=== PATIENT | female | born 1960 | race Caucasian/White ===

== ENCOUNTER → 2019-07-16 | Outpatient (CLI) | payer BC | LOC: MC.RAD 07:02 | DX: Z12.31 Encounter for screening mammogram for malignant neoplasm of breast (principal) ==

== ENCOUNTER → 2020-07-24 | Outpatient (CLI) | payer BC | LOC: MC.RAD 07-16 07:30 | DX: Z12.31 Encounter for screening mammogram for malignant neoplasm of breast (principal) ==

== ENCOUNTER 2021-03-26 08:19 | Day surgery (SDC) | payer BC ==
[~2021-03-26] VITALS: Ht 22.9 cm; Wt 85.5 kg
[2021-03-26 08:45] VITALS: BP 102/73; PULSE 56; TEMP 98
[2021-03-26 10:40] VITALS: BP 90/52; PULSE 64
[2021-03-26 10:50] VITALS: BP 99/59; PULSE 63
[2021-03-26 10:55] VITALS: BP 87/76; PULSE 59
[2021-03-26 11:25] VITALS: BP 106/52; PULSE 60; TEMP 98.4
--- NOTE | 2021-03-26 11:25 | NUR ---
1125- PATIENT BROUGHT BACK TO ENDO ROOM 5 VIA CART. AMBULATED TO CHAIR WITHOUT DIFFICULTY. DAUGHTER AT BEDSIDE TO DRIVE PATIENT HOME. DR. CASTANON ALREADY SPOKE TO PATIENT AND DAUGHTER. KONSTANTIN TOLEDO AT BEDSIDE FOR REPORT. STATES THAT PATIENT HAS BEEN AWAKE AND ORIENTED FOR OVER 30 MINUTES IN PROCEDURE ROOM. DOES NOT NEED TO STAY FOR FULL RECOVERY. PATIENT STATES SHE WOULD LIKE TO GO HOME AT THIS TIME. VITAL SIGNS STABLE. DISCHARGE INSTRUCTIONS REVIEWED WITH PATIENT AND DAUGHTER. ALL QUESTIONS ANSWERED. IV REMOVED, INTACT. PATIENT TO GET DRESSED AT THIS TIME. 1136- BROUGHT DOWN TO LOBBY VIA WHEEL CHAIR. PLACED IN DAUGHTERS CAR. ALL BELONGINGS IN HAND.
== END 2021-03-26 11:36 | disposition home or self-care (01) ==
LOC: SDCO 08:19
DX: Z12.11 Encounter for screening for malignant neoplasm of colon (principal); E78.5 Hyperlipidemia, unspecified; Z80.3 Family history of malignant neoplasm of breast; Z87.891 Personal history of nicotine dependence
CPT/HCPCS: J7120

== ENCOUNTER → 2022-09-14 | Outpatient (CLI) | payer BC | LOC: MC.RAD 07:07 | DX: Z12.31 Encounter for screening mammogram for malignant neoplasm of breast (principal); Z80.3 Family history of malignant neoplasm of breast ==